=== PATIENT | female | born 1985 | race Two or more races ===

== ENCOUNTER 2022-09-24 05:40 | Day surgery (SDC) | payer OTHER ==
[~2022-09-24] VITALS: Ht 152.4 cm; Wt 51.7 kg
[~2022-09-24 05:40] MED LIST: ASPIRIN1 GM
[2022-09-24] MEDS ORDERED: NEURONTIN300 MG PO (09:18)
[2022-09-24] MEDS ORDERED: PERCOCET 5-3251 EACH PO (09:18)
[2022-09-24] MEDS ORDERED: COLACE100 MG PO (09:18)
== END 2022-09-24 15:40 | disposition home or self-care (01) ==
LOC: CIR.AMB 05:40
PROVIDERS: ATTEND Surgery
DX: K64.8 Other hemorrhoids (principal); K63.89 Other specified diseases of intestine; K64.4 Residual hemorrhoidal skin tags; Z20.822 Contact with and (suspected) exposure to COVID-19; Z88.6 Allergy status to analgesic agent